=== PATIENT | male | born 1955 | race Caucasian/White ===

== ENCOUNTER → 2019-09-05 16:21 | Outpatient (CLI) | payer MEDICARE, MEDICAID, SELFPAY ==
--- NOTE | 2019-09-05 | DI.MRI.S_ITS ---
PROCEDURE: MR KNEE RT WO CON INDICATIONS: RT KNEE PAIN TECHNIQUE: Noncontrast sagittal PD fast spin echo and T2 fast spin echo with fat saturation, sagittal 3-D FLASH with fat saturation; coronal T1 spin echo and PD fast spin echo with fat saturation, and axial PD fast spin echo with fat saturation through the knee. COMPARISON: [facility] [place], [place], XR KNEE ARTHRITIC SERIES RT, 08/13/2019, 11:18. FINDINGS: Image quality: Excellent. Menisci: Medial extrusion of the medial meniscus. Linear oblique high T2 signal intensity traverses the medial meniscal body, demonstrating superior and inferior articular surface extension. There is vague linear oblique high T2 signal intensity traversing the anterior horn and body of the lateral meniscus, demonstrating inferior articular surface extension, indicating oblique tearing. Cruciate ligaments: The anterior cruciate ligament is intact. There is moderate T2 signal elevation within the posterior cruciate ligament at the tibial insertion site. Low-grade T2 signal elevation within the posterior cruciate ligament at the femoral insertion site. Medial structures: The medial collateral ligament appears intact. Visualized portions of the pes anserinus tendons appear normal. No abnormal bursal fluid. Lateral structures: The lateral collateral ligament demonstrates mild T2 signal elevation at its femoral origin. The long and short heads of the biceps femoris tendon appear intact. The popliteus tendon appears normal. Iliotibial band appears normal. Anterior structures: The quadriceps and patellar tendons appear intact. Patellar alignment is normal. No femoral trochlear dysplasia or ventral trochlear prominence. No edema in the infrapatellar fat pad. Bones and cartilage: No bone marrow contusions or fractures mild degenerative marrow edema within the mid weightbearing aspects of the medial femoral condyle and within the mid/anterior weightbearing aspects of the medial tibial plateau.. Moderate tricompartmental periarticular osteophyte formation. Severe articular cartilage loss diffusely overlies the weightbearing aspects of the medial femoral condyle and medial tibial plateau. Mild articular cartilage loss overlies the weightbearing aspects of the lateral compartment as well as the medial and lateral patellar facets. Joint space: There is a small knee joint effusion and a trace Naqvi's cyst. Normal appearing synovial plicae are incidentally noted. IMPRESSION: 1. Tricompartmental osteoarthritis with associated articular cartilage loss. 2. Medial meniscal tearing and extrusion. 3. Possible subtle oblique tearing of the lateral meniscus. 4. Knee joint effusion and Naqvi's cyst. 5. Partial-thickness posterior cruciate ligament tear. Dictated by: Joshua Diaz M.D. on 09/06/2019 at 8:54 Approved by: Joshua Diaz M.D. on 09/06/2019 at 9:05
--- NOTE | 2019-09-05 | DI.MRI.S_ITS ---
PROCEDURE: MR LUMBAR SPINE WO CON INDICATIONS: LOWER BACK PAIN TECHNIQUE: Noncontrast sagittal T1 spin echo and T2 fast echo, sagittal STIR, axial T1 and T2 fast spin echo through the lumbar spine. In cases with scoliosis, additional coronal T2 fast spin echo may be performed. COMPARISON: None. FINDINGS: Image quality: Excellent. Alignment and Curvature: There is trace retrolisthesis of L2 on L3, L3 on L4. Bone Marrow: Marrow is of normal overall signal. Focus of increased T1 and T2 signal of the L2 vertebral body is present suggestive of hemangioma. No acute vertebral body compression fractures. Spinal Cord: Conus medullaris terminates at the L1 level. Visualized cord demonstrates normal signal and size. Paraspinous Soft Tissues: No paravertebral masses. Discs: Minimal mild desiccation is present throughout the lumbar spine. L1-L2: Minimal disc bulge without spinal stenosis. No foraminal narrowing. L2-L3: Mild asymmetric disc bulge with mild to moderate spinal stenosis. Mild bilateral foraminal narrowing with facet and ligamentum flavum hypertrophy. Minimal epidural lipomatosis. L3-L4: Mild disc bulge with moderate spinal stenosis. Mild to moderate left foraminal narrowing with facet and ligamentum flavum hypertrophy. L4-L5: Minimal disc bulge with minimal canal narrowing. No foraminal narrowing. Mild facet and ligamentum flavum hypertrophy. L5-S1: Minimal disc bulge without spinal stenosis. There is moderate narrowing through the right subarticular recess secondary to prominent facet hypertrophy. IMPRESSION: 1. Overall mild degenerative changes most notable with prominent right subarticular recess narrowing as above. Dictated by: Patricia Rojo M.D. on 09/06/2019 at 16:35 Approved by: Patricia Rojo M.D. on 09/06/2019 at 16:39
== END ==
PROVIDERS: Referring Provider Orthopaedic Surgery Orthopaedic Surgery of the Spine; Visit Provider Orthopaedic Surgery Orthopaedic Surgery of the Spine
DX: M25.561 Pain in right knee (principal); M54.5 Low back pain; S83.241A Other tear of medial meniscus, current injury, right knee, initial encounter; S83.521A Sprain of posterior cruciate ligament of right knee, initial encounter; M17.11 Unilateral primary osteoarthritis, right knee; M25.461 Effusion, right knee; M47.816 Spondylosis without myelopathy or radiculopathy, lumbar region; M47.817 Spondylosis without myelopathy or radiculopathy, lumbosacral region
CPT/HCPCS: 72148; 73721